=== PATIENT | female | born 1990 | race Two or more races ===

== ENCOUNTER 2023-05-07 23:29 | Emergency (ER) | payer OTHER ==
[~2023-05-07] VITALS: Ht 154.9 cm; Wt 57.6 kg
[2023-05-08] MEDS ORDERED: COZAAR50 MG PO (00:05)
[2023-05-08] MEDS ORDERED: ATORVASTATIN CA20 MG PO (00:28)
[2023-05-08] MEDS ORDERED: ADULT LOW DOSE81 M1 PO (00:29)
[2023-05-08 00:45] LABS: HEMATOCRIT 36.7 % (36.0-45.00); HEMOGLOBIN 12.3 g/dL (12.0-15.00); MEAN CELL VOLUME 95.2 fL (80.00-100.00); MEAN CORPUSCULAR HEMOGLOBIN 31.9 pg (27.00-32.0); MEAN CORPUSCULAR HGB CONC 33.5 g/dl (32.0-36.0); PLATELET COUNT 345 K/uL (150-450); RED BLOOD COUNT 3.85 M/uL (4.00-6.00); RED CELL DISTRIBUTION WIDTH 13.4 % (11.5-14.5)
[2023-05-08 01:00] LABS: INR 1.04; PARTIAL THROMBOPLASTIN TIME 27.5 SECONDS (22.0-34.0); PROTHROMBIN TIME 10.9 SECONDS (9.0-11.5)
[2023-05-08 01:03] LABS: ALBUMIN 3.9 gm/dL (3.4-5.0); BILIRUBIN TOTAL 0.27 mg/dL (0.3-1.2); CALCIUM 8.8 mg/dL (8.5-10.1); CREATININE SERUM 0.84 mg/dL (0.55-1.02); GFR 77.61; GLOBULINA 3.6 G/DL (2.4-3.5); POTASSIUM 3.44 mEq/L (3.5-5.1); TOTAL PROTEIN 7.5 gm/dL (6.4-8.2)
[2023-05-08 01:29] LABS: URINE APPEARANCE Clear; URINE BILIRRUBIN Negative (NEGATIVE); URINE BLOOD Large; URINE COLOR Yellow; URINE GLUCOSE Negative (NEGATIVE); URINE LEUKOCYTE Large; URINE NITRATE Negative; URINE PROTEIN Trace (NEGATIVE); URINE UROBILINOGEN 0.2 E.U./dl
[2023-05-08 01:32] LABS: URINE BACTERIA 1214.4 uL (0.0-1933); URINE EPITHELIAL CELLS 6.3 uL (0.0-38.8); URINE RBC 25.7 uL (0.0-20.8); URINE WBC 190.5 uL (0.0-23.2)
[2023-05-08] MEDS ORDERED: CEPHALEXIN500 MG PO (06:06)
== END 2023-05-08 06:48 ==
LOC: ER 23:29
PROVIDERS: General Practice
DX: R00.0 Tachycardia, unspecified (principal); R00.2 Palpitations; F41.8 Other specified anxiety disorders; N39.0 Urinary tract infection, site not specified